=== PATIENT | male | born 1980 | race Caucasian/White ===

== ENCOUNTER 2016-08-21 13:36 | Emergency (ER) | payer MEDICAID ==
[~2016-08-21] VITALS: Ht 175.3 cm; Wt 70.3 kg
[2016-08-21 13:56] VITALS: BP 148/73
[2016-08-21] MEDS ORDERED: Azithromycin 250mg tab ORAL ONE (14:00)
--- NOTE | 2016-08-21 14:07 | Emergency Room Report ---
History of Present Illness General Chief Complaint: Male Urogenital Problems Source: Patient Present Illness HPI 36 y/o male c/o penile discharge x 2 days. States that he is homosexual with HIV and had anal intercourse (patient penetrated partner) with another male and a few days later started experiencing penile discharge. Assoc sxs include copious amount of purulent discharge from urethra and [employer]. No provoking or relieving factors. Denies any other physical complaints. States his CD4 and antiviral therapy is managed by his PCP in [facility]. Denies any current n/v/f/c/d , abd pain, back pain, neck pain, photophobia, phonophobia, CP, SOB or headache. Allergies: Coded Allergies: No Known Allergies (Unverified , 08/21/16) Patient History Past Medical History: see triage record Past Surgical History: none Pertinent Family History: none Reviewed Nursing Documentation: PMH: Agreed, PSxH: Agreed Nursing Documentation-PMH Hx Cardiac Problems: No - hiv Review of Systems All Other Systems: negative except mentioned in HPI Physical Exam Vital Signs Date Time Temp Pulse Resp B/P Pulse Ox O2 Delivery O2 Flow Rate FiO2 08/21/16 13:47 97.9 105 20 152/73 98 Room Air General Appearance: no apparent distress, alert, GCS 15, non-toxic Head: normocephalic, atraumatic ENT: normal ENT inspection Respiratory: chest non-tender, lungs clear, normal breath sounds, speaking full sentences Cardiovascular #1: regular rate, rhythm, no edema Gastrointestinal: non tender, soft Neurologic: alert, oriented x3, responsive, motor strength/tone normal, sensory intact, speech normal Psychiatric: judgement/insight normal, memory normal, mood/affect normal, no suicidal/homicidal ideation Skin: normal color, warm/dry Medical Decision Making PA Attestation Dr. Winters is my supervising physician with whom patient management has been discussed with. Diagnostic Impression: Primary Impression: Penile discharge Additional Impressions: Sexually transmitted infection High risk sexual behavior ER Course Pt. presents to the ED c/o penile discharge Ddx considered but are not limited to GC/ Chlamydia, balanitis Vital signs: are WNL, pt. is afebrile H&PE are most consistent with GC/Chlamydia ORDERS: none required at this time, the diagnosis is clinical ED INTERVENTIONS: 250mg Rocephin, 1g Azithromycin DISCHARGE: At this time pt. is stable for d/c to home. Patient advised to follow up with community clinic for more indepth lab work and to follow up with PCP in the next 1-2 weeks. Return to clinic sooner if sxs worsen. Will provide printed patient care instructions, and any necessary prescriptions. Care plan and follow up instructions have been discussed with the patient prior to discharge. Last Vital Signs Date Time Temp Pulse Resp B/P Pulse Ox O2 Delivery O2 Flow Rate FiO2 08/21/16 13:56 97.9 72 20 148/73 98 Room Air Disposition: HOME, SELF-CARE Condition: Stable Scripts Doxycycline Hyclate* (VIBRAMYCIN*) 100 Mg Capsule 100 MG ORAL EVERY 12 HOURS, #20 CAP 0 Refills Prov: ABE WEBERFabien P.A. 08/21/16 Patient Instructions: Chlamydia, Male, Gonorrhea, Sexually Transmitted Disease , Syphilis Additional Instructions: Take medication as directed. Patient advised to follow up with community clinic for formal STD screening. In general, watch out for any genital itching, burning , sores, or discharge. But be aware that many STIs do not cause any symptoms. The best way to know for sure if you have an STI is to be screened. If you have an STI, you will need treatment. The right treatment will depend on the type of STI you have. If you do have an infection, you might need to tell the people you could have infected. There is no surefire way to prevent all STIs, but there are things you can do to reduce your chances of catching one. The most important thing you can do is to wear a condom every time you have sex. Both male and female condoms can protect against STIs. But be aware that male condoms made out of "natural materials," such as sheep intestine, do NOT protect against STIs. If you are 26 years old or younger, you can get a vaccine to protect against HPV, the virus that causes genital warts. If you do not have hepatitis A or B and have not already gotten the vaccine for hepatitis A or B, you can get those vaccines, too. If your partner has herpes, he or she can reduce the chances of infecting you by taking a medicine called valacyclovir. If you are at very high risk of catching HIV, you might be able to take a pill every day to reduce the chances that you will get HIV. This is an option only for very few at-risk people. KOSTA WEBER August 21, 2016 14:07
[2016-08-21] MEDS ORDERED: VIBRAMYCIN100 MG ORAL (14:08)
[2016-08-21 14:20] VITALS: BP 148/73
== END 2016-08-21 14:30 | disposition home or self-care (01) ==
LOC: EMR 13:55
DX: R36.9 Urethral discharge, unspecified (principal); Z20.2 Contact with and (suspected) exposure to infections with a predominantly sexual mode of transmission; R46.89 Other symptoms and signs involving appearance and behavior
CPT/HCPCS: 96372; 99283; J0696; Q0144